=== PATIENT | male | born 1955 | race Caucasian/White ===

== ENCOUNTER 2018-03-09 07:52 | Day surgery (SDC) | payer BC, OTHER ==
--- OUTSIDE RECORDS SUMMARY | 2018-03-09 07:55 | XMS REPORT | Summary of Care ---
:1955 Author Organization [facility] Outpatient Imaging [place] Address [address], [place] [address]- Encounter HQ Encntr_alias(FIN) [id number] Date(s): 08/24/15 - 08/24/15 [facility] Outpatient Imaging [address] [phone] Discharge Disposition: Home Attending Physician: George Laws MD Vital Signs No data available for this section Problem List Condition Effective Dates Status Health Status Informant Cellulitis(Confirmed) Active Morbid obesity(Confirmed) Active Pain(Confirmed) Active Allergies, Adverse Reactions, Alerts Substance Reaction Severity Status NKDA Active Medications No data available for this section Results No data available for this section Immunizations No data available for this section Procedures No data available for this section Social History Social History Type Response Smoking Status Never smoker; Exposure to Tobacco Smoke None; Cigarette Smoking Last 365 Days No; Reg Smoking Cessation Counseling No Assessment and Plan No data available for this section
--- OUTSIDE RECORDS SUMMARY | 2018-03-09 07:55 | XMS REPORT | Summary of Care ---
:1955 Author Organization [facility] Outpatient Imaging [place] Address [address] [address]- Encounter HQ Encntr_alias(FIN) [id number] Date(s): 03/26/17 - 03/26/17 [facility] Outpatient Imaging [address], [address] [place] [phone] Discharge Disposition: Home or Self Care Attending Physician: yCril Archer Vital Signs No data available for this section Problem List Condition Effective Dates Status Health Status Informant Morbid obesity(Confirmed) Active Pain(Confirmed) Active Testicular mass(Confirmed) Active Allergies, Adverse Reactions, Alerts Substance Reaction [...]
--- OUTSIDE RECORDS SUMMARY | 2018-03-09 07:55 | XMS REPORT | Continuity of Care Document ---
:1955 Author Organization Interface Problems Problem Status Onset Classification Date Comments Source Date Reported N50.9 - Active 08/22/19 [facility] [address] [place] [facility]ITAL [facility] Morbid obesity Active Problem 03/29/2017 [facility] [place] Pain Active Problem 03/29/2017 [facility] [place] Testicular Active Problem 03/29/2017 [facility] mass [facility] Cellulitis Active Problem 09/07/2015 [facility] [place] Medications Medication Details Route Status Patient Ordering Order Source Instructions Provider Date Allergies, Adverse Reactions, Alerts Substance Category Reaction Severity Reaction Status Date Comments Source type Reported Immunizations Immunization Date Given Site Status Last Updated Comments Source Results Order Results Value Reference Date Interpretation Comments Source Name Range Spine Spine MRI LUMBAR SPINE WITHOUT CONTRAST 03/26 - [facility] lumbar wo lumbar - [facility] contrast contrast MRI MRI HISTORY: M54.5 Low back pain - degenerative disc disease lumbar spine, 61-year-old male reports stabbing low back pain for approximately 3 weeks Read by: Juan Manuel Angel MD Dictated Date/time: 03/26/17 14:21 Electronically Signed by: Juan Manuel Angel MD 03/26/17 14:33 FINAL REPORT COMPARISON: CT abdomen/pelvis dated 09/04/2015 TECHNIQUE: Multiplanar T1, T2, fluid-sensitive weighted MRI of the lumbar spine without contrast is performed on the 1.5 Carlie magnet. FINDINGS: No fracture is seen. Vertebral body heights are maintained. No bone marrow edema or aggressive osseous lesion. No discitis/osteomyelitis. Mild to moderate multilevel disc degeneration and facet arthrosis. No spondylolisthesis. No paraspinal mass, fluid collection, or inflammatory signal. Visualized portion of the kidneys and aorta is unremarkable. DISC SPACES: T12/L1: Mild degenerative disc desiccation. Normal facet joints. No canal stenosis or neural foraminal narrowing. L1/L2: Mild degenerative disc desiccation. Mild bilateral degenerative facet arthrosis. No canal stenosis or neural foraminal narrowing. L2/L3: Mild degenerative disc desiccation. Mild bilateral degenerative facet arthrosis. No canal stenosis or neural foraminal narrowing. L3/L4: Mild degenerative diffuse disc bulge. Moderate degenerative facet and ligamentum flavum hypertrophy. No canal stenosis. No significant neural foraminal narrowing. L4/L5: Mild degenerative diffuse disc bulge. Moderate degenerative facet and ligamentum flavum hypertrophy. No canal stenosis. Mild bilateral neural foraminal narrowing. L5/S1: Mild degenerative diffuse disc bulge. Moderate degenerative facet and ligamentum flavum hypertrophy. No canal stenosis. No significant neural foraminal narrowing. IMPRESSION: 1. Multilevel mild disc degeneration and mild to moderate facet arthrosis. 2. No significant canal stenosis or neural foraminal narrowing. SL: [id number] Abdomen/P Abdomen/P Procedure: CT Abdomen/Pelvis with IV and Oral Contrast. 09/03 - [facility] galicia mary - IV IV contrast contrast CT CT Clinical Indication: Left testicular mass. Read by: Ricardo Courtney MD Dictated Date/time: 09/04/15 15:20 Electronically Signed by: Ricardo Courtney MD 09/04/15 15:28 FINAL REPORT Comparison: Scrotal ultrasound 08/24/2015. TECHNIQUE: Helical imaging was performed diaphragm through the symphysis with multiplanar reformations obtained. IV CONTRAST: 100 mL Omnipaque 300. GI CONTRAST: Diluted Omnipaque 300. FINDINGS: LOWER CHEST: The lung bases are clear. SOLID ORGANS: The liver demonstrates diminished attenuation consistent with fatty infiltration. The gallbladder, pancreas, adrenal glands and kidneys appear normal. There are calcified splenic granulomata. BOWEL: The bowel is within normal limits. The appendix is unremarkable. PERITONEUM: No free intraperitoneal fluid or air. There is a small fat- containing umbilical hernia. RETROPERITONEUM: Calcific atherosclerosis involves the abdominal aorta and iliac vessels. There are multiple enlarged retroperitoneal lymph nodes, the largest of which is present in the left para-aortic location and measures 14 mm in short axis dimension. There is a precaval lymph node near the aortic bifurcation measuring 8 mm in short axis dimension. PELVIS: The seminal vesicles and prostate gland are within normal limits. No definitive enlarged pelvic lymphadenopathy is observed. There are several subcentimeter benign-appearing bilateral inguinal lymph nodes. The urinary bladder is normal. MUSCULOSKELETAL: Degenerative change involves the lumbosacral spine. No osseous metastatic disease is identified. IMPRESSION: 1. Fatty infiltration of the liver. 2. Previous granulomatous disease. 3. Small fat-containing umbilical hernia. 4. Enlarged retroperitoneal para-aortic lymph nodes as described. SL:[id number] Scrotal/T Scrotal/T EXAM: Ultrasound scrotum and testes 08/23 - [facility] esticle est - [place] US US EXAM: Mass left testicle COMPARISON: None Read by: Pedro Garcia MD Dictated Date/time: 08/24/15 11:57 TECHNIQUE: Sonographic evaluation of the scrotum and testes was performed using high resolution B-mode imaging as well as pulse and color Doppler imaging. Electronically Signed by: Pedro Garcia MD 08/24/15 12:10 FINAL REPORT FINDINGS: TESTES: The right testicle measures 4.3 x 2.5 x 2.9 cm. The left testicle measures 5.5 x 3.6 x 4 cm. A large heterogeneous hypoechoic approximately 4.6 cm mass with color flow is present in the left testis. Mild heterogeneity of the right testis without mass seen. EPIDIDYMIDES: Appear unremarkable. SCROTUM: Moderate hydrocele on the left and small hydrocele on the right. Small varicoceles on the left. IMPRESSION: 1. Large, approximately 4.6 cm mass left testis compatible with primary malignancy. 2. Moderate hydrocele on the left and small hydrocele on the right. 3. Small left-sided varicoceles. Message was left with Dr. Laws's answering service. SL: [id number] Vital Signs Vital Sign Value Date Comments Source Encounters Location Location Encounter Encounter Reason Attending ADM DC Status Source Details Type Number For Provider Date Date Visit [facility] Outpt Diag [id number] Darcie Laws 08/23 08/24 [facility] [place] [facility] [id number] DARCIE LAWS 08/29 Active [facility] Outpt Diag [id number] Darcie Laws 09/03 09/04 [facility] [id number] DARCIE LAWS 09/06 Active [facility] [place] Outpatient [id number] DARCIE LAWS 09/20 [facility] Outpt Diag [id number] Cyril 03/26 03/27 [facility] Procedures Procedure Code Date Perfomer Comments Source
--- OUTSIDE RECORDS SUMMARY | 2018-03-09 07:55 | XMS REPORT | Clinical Summary ---
:1955 Author Organization [facility] Address [address] [place] [address] Care Team Providers Name Role Phone Pcp, No Primary Care Provider Unavailable Allergies No Known Allergies Medications Medication Sig Dispensed Refills Start Date End Date Status insulin degludec Inject 40 Units 0 Active (TRESIBA FLEXTOUCH subcutaneously 50 U-100) 100 unit/mL units at night. . (3 mL) InPn liraglutide 0.6 Inject 0 Active mg/0.1 mL (18 mg/3 subcutaneously mL) PnIj daily. insulin aspart U-100 Inject 0 Active (NOVOLOG) 100 subcutaneously 3 unit/mL InPn (three) times daily with meals Sliding scale. . canagliflozin Take 300 mg by mouth 0 Active (INVOKANA) 300 mg daily. tablet metFORMIN (FORTAMET) Take 1,000 mg by 0 Active 1000 MG (OSM) 24 hr mouth 2 (two) times tablet daily with breakfast and dinner. rivaroxaban Take 20 mg by mouth 0 Active (XARELTO) 20 mg Tab daily with dinner tablet Last dose on 01/04/18 in prep for procedure. . digoxin (LANOXIN) Take 125 mcg by 0 Active 0.125 MG tablet mouth daily. atorvastatin Take 20 mg by mouth 0 Active (LIPITOR) 20 MG daily. tablet metoprolol Take 150 mg by mouth 0 Active (TOPROL-XL) 100 MG daily. 24 hr tablet losartan (COZAAR) 25 Take 25 mg by mouth 0 Active MG tablet daily. pantoprazole Take 40 mg by mouth 0 Active (PROTONIX) 40 MG daily. tablet febuxostat 40 mg Take 40 mg by mouth 0 Active tablet daily. cholecalciferol, Take 2,000 Units by 0 Active vitamin D3, 2,000 mouth daily. unit Tab aspirin 81 MG EC Take 81 mg by mouth 0 Active tablet daily Last dose on 01/04/18 . omega-3 acid ethyl Take 1 g by mouth 2 0 Active esters (LOVAZA) 1 (two) times daily. gram capsule vit A/vit C/vit Take 1 capsule by 0 Active E/zinc/copper mouth 2 (two) times (PRESERVISION AREDS daily. ORAL) Active Problems Problem Noted Date CAD (coronary artery disease) 01/08/2018 Encounters Date Type Specialty Care Team Description 01/08/2018 Surgery Giuliano Morales MD L CATH & PCI 01/08/2018 Hospital Encounter Giuliano Morales MD 01/07/2018 Orders Only Cardiology Giuliano Morales MD after 03/08/2017 Social History Tobacco Use Types Packs/Day Years Used Date Never Smoker Smokeless Tobacco: Never Used Alcohol Use Drinks/Week oz/Week Comments No Sex Assigned at Date Recorded Not on file Job Start Date Occupation Industry Not on file Not on file Not on file Travel History Travel Start Travel End No recent travel history available. Last Filed Vital Signs Vital Sign Reading Time Taken Blood Pressure 156/68 01/08/2018 11:45 AM CDT Pulse 120 01/08/2018 11:45 AM CDT Temperature 36.7 C (98.1 F) 01/08/2018 5:45 AM CDT Respiratory Rate 18 01/08/2018 11:45 AM CDT Oxygen Saturation 96% 01/08/2018 9:05 AM CDT Inhaled Oxygen Concentration - - Weight 142.7 kg (314 lb 11.2 oz) 01/08/2018 5:45 AM CDT Height 186.7 cm (6' 1.5") 01/08/2018 5:45 AM CDT Body Mass Index 40.96 01/08/2018 5:45 AM CDT Plan of Treatment Not on file Implants Implanted Type [employer] Device Shelf Model / Identifier Expiration Serial / Date Lot Device Clsr Angio-Seal Vip 6fr [id number] - [id number] Cardiovascular Right: [employer] SARAH [id number] 09/27/2018 [id number] / Implanted: Qty: 1 on 01/08/2018 by Giuliano Morales MD [facility] MED: CARDIAC / SURG [id number] Procedures Procedure Name Priority Date/Time Associated Diagnosis Comments REPORT OF PROCEDURE - 01/09/2018 12:50 PM ENDOSCOPY SCAN CDT VASCULAR DIAGRAM -SCAN 01/09/2018 12:50 PM CDT CARDIAC CATH REPORT - 01/09/2018 12:50 PM SCAN CDT L CATH & PCI 01/08/2018 7:30 AM Abnormal cardiac CDT function test Case Notes (1) CASE POP6 CBC W/PLT COUNT & AUTO STAT 01/08/2018 6:12 AM CDT Results for this DIFFERENTIAL procedure are in the results section. CBC W/PLT COUNT & AUTO STAT 01/08/2018 6:12 AM CDT Results for this DIFFERENTIAL procedure are in the results section. BASIC METABOLIC PANEL (7) STAT 01/08/2018 6:12 AM CDT after 03/08/2017 Results EKG-SCANNED (01/09/2018 12:50 PM CDT) Narrative Performed At VASCULAR DIAGRAM -SCAN (01/09/2018 12:50 PM CDT) Narrative Performed At CARDIAC CATH REPORT - SCAN (01/09/2018 12:50 PM CDT) Narrative Performed At CBC with platelet count + automated diff (01/08/2018 6:12 AM CDT) WBC 6.9 3.5 - 10.5 K/L [facility] RBC 3.85 (L) 4.63 - 6.08 M/L [facility] Hemoglobin 8.7 (L) 13.7 - 17.5 GM/DL [facility] Hematocrit 30.8 (L) 40.1 - 51.0 % [facility] MCV 80.0 79.0 - 92.2 fL [facility] MCH 22.6 (L) 25.7 - 32.2 pg [facility] MCHC 28.2 (L) 32.3 - 36.5 GM/DL [facility] RDW 16.6 (H) 11.6 - 14.4 % [facility] Platelets 167 150 - 450 K/CU MM [facility] MPV 9.2 (L) 9.4 - 12.4 fL [facility] nRBC 0 0 - 0 /100 WBC [facility] % Neutros 73 % [facility] % Lymphs 15 % [facility] % Monos 11 % [facility] % Eos 0 % [facility] % Baso 0 % [facility] # Neutros 4.99 1.78 - 5.38 K/L [facility] # Lymphs 1.06 (L) 1.32 - 3.57 K/L [facility] # Monos 0.73 0.30 - 0.82 K/L [facility] # Eos 0.03 (L) 0.04 - 0.54 K/L [facility] # Baso 0.03 0.01 - 0.08 K/L [facility] Immature Granulocytes-Relative 1 0 - 1 % [facility] Specimen Blood - Arm, Left Performing Organization Address City/State/Zipcode Phone Number [facility] [address] [place] [address] CENTER Basic metabolic panel (01/08/2018 6:12 AM CDT) Sodium 136 136 - 145 meq/L [facility] Potassium 4.0 3.5 - 5.1 meq/L [facility] Chloride 105 98 - 107 meq/L [facility] CO2 21 (L) 22 - 29 meq/L [facility] BUN 22 (H) 7 - 21 mg/dL [facility] Creatinine 1.33 (H) 0.57 - 1.25 mg/dL [facility] Glucose 141 (H) 70 - 105 mg/dL [facility] Calcium 8.7 8.4 - 10.2 mg/dL [facility] EGFR 54Comment: ESTIMATED GFR IS mL/min/1.73 sq m [facility] NOT ACCURATE CREATININE MEDICAL CENTER CLEARANCE IN PREDICTING GLOMERULAR FILTRATION RATE. ESTIMATED GFR IS NOT APPLICABLE FOR DIALYSIS PATIENTS. Specimen Blood - Arm, Left Performing Organization Address City/State/Zipcode Phone Number [facility] [address] [place] [address] [phone] CENTER after 03/08/2017 Insurance Payer Benefit Plan / Subscriber ID Type Phone Address Group BLUE CROSS/BLUE BCBS PPO POS EPO xxxxxxxxxxxx PPO [phone] [address] [place] [address] (Home) [place] [address] Advance Directives Patient has advance care planning documents, and code status on file. For more information, please contact:[facility] [place] [address] [phone] Code Status Date Activated Date Inactivated Comments Full Code 01/08/2018 5:55 AM 01/08/2018 2:35 PM This code status was determined by: Patient
--- OUTSIDE RECORDS SUMMARY | 2018-03-09 07:55 | XMS REPORT | Summary of Care ---
:1955 Author Organization [facility] Outpatient Imaging [place] Address [id number] [place] [address]- [facility] HQ Encntr_alias(FIN) [id number] Date(s): 09/04/15 - 09/04/15 [facility] Outpatient Imaging [address] Discharge Disposition: Home Attending Physician: George Laws MD Vital Signs No data available for this section Problem List Condition Effective Dates Status Health Status Informant Cellulitis(Confirmed) Active Morbid obesity(Confirmed) Active Pain(Confirmed) Active Testicular mass(Confirmed) [...]
--- OUTSIDE RECORDS SUMMARY | 2018-03-09 07:56 | XMS REPORT ---
:1955 [facility] Address [address] [place] [address] Dr. Gomez [address] [place] [address] Care Team Providers Name Role Phone VAL ZAMUDIO Unavailable Unavailable Problems This patient has no known problems. Allergies, Adverse Reactions, Alerts This patient has no known allergies or adverse reactions. Medications This patient has no known medications. Results Test Description Test Time Test Comments Text Results Atomic Results Result Comments BASIC METABOLIC PANEL 2018-01-08 07:29:00 Test Item Value Reference Range Comments SODIUM (BEAKER) (test 136 meq/L 136-145 zivo=963) POTASSIUM (BEAKER) (test 4.0 meq/L 3.5-5.1 itee=969) CHLORIDE (BEAKER) (test 105 meq/L 98-107 vurb=926) CO2 (BEAKER) (test msqt=341) 21 meq/L 22-29 BLOOD UREA NITROGEN (BEAKER) 22 mg/dL 7-21 (test hemq=724) CREATININE (BEAKER) (test 1.33 mg/dL 0.57-1.25 xmca=667) GLUCOSE RANDOM (BEAKER) 141 mg/dL 70-105 (test oufy=906) CALCIUM (BEAKER) (test 8.7 mg/dL 8.4-10.2 scwj=492) EGFR (BEAKER) (test 54 mL/min/1.73 sq m ESTIMATED GFR IS NOT hgng=6259) ACCURATE CREATININE CLEARANCE IN PREDICTING GLOMERULAR FILTRATION RATE. ESTIMATED GFR IS NOT APPLICABLE FOR DIALYSIS PATIENTS. CBC W/PLT COUNT & AUTO [id number] 06:20:00 Test Item Value Reference Range Comments WHITE BLOOD CELL COUNT (BEAKER) (test wcdg=017) 6.9 K/ L 3.5-10.5 RED BLOOD CELL COUNT (BEAKER) (test wbea=544) 3.85 M/ L 4.63-6.08 HEMOGLOBIN (BEAKER) (test ynby=532) 8.7 GM/DL 13.7-17.5 HEMATOCRIT (BEAKER) (test spmp=426) 30.8 % 40.1-51.0 MEAN CORPUSCULAR VOLUME (BEAKER) (test byra=242) 80.0 fL 79.0-92.2 MEAN CORPUSCULAR HEMOGLOBIN (BEAKER) (test 22.6 pg 25.7-32.2 vwzi=315) MEAN CORPUSCULAR HEMOGLOBIN CONC (BEAKER) (test 28.2 GM/DL 32.3-36.5 brey=385) RED CELL DISTRIBUTION WIDTH (BEAKER) (test 16.6 % 11.6-14.4 dzlj=907) PLATELET COUNT (BEAKER) (test xblx=518) 167 K/CU MM 150-450 MEAN PLATELET VOLUME (BEAKER) (test bgxm=026) 9.2 fL 9.4-12.4 NUCLEATED RED BLOOD CELLS (BEAKER) (test 0 /100 WBC 0-0 xnst=990) NEUTROPHILS RELATIVE PERCENT (BEAKER) (test 73 % lmzo=840) LYMPHOCYTES RELATIVE PERCENT (BEAKER) (test 15 % khqh=493) MONOCYTES RELATIVE PERCENT (BEAKER) (test 11 % oodl=225) EOSINOPHILS RELATIVE PERCENT (BEAKER) (test 0 % pcvs=366) BASOPHILS RELATIVE PERCENT (BEAKER) (test 0 % yiad=721) NEUTROPHILS ABSOLUTE COUNT (BEAKER) (test 4.99 K/ L 1.78-5.38 guou=139) LYMPHOCYTES ABSOLUTE COUNT (BEAKER) (test 1.06 K/ L 1.32-3.57 sbhp=076) MONOCYTES ABSOLUTE COUNT (BEAKER) (test 0.73 K/ L 0.30-0.82 avrs=459) EOSINOPHILS ABSOLUTE COUNT (BEAKER) (test 0.03 K/ L 0.04-0.54 manu=104) BASOPHILS ABSOLUTE COUNT (BEAKER) (test 0.03 K/ L 0.01-0.08 nrdp=259) IMMATURE GRANULOCYTES-RELATIVE PERCENT (BEAKER) 1 % 0-1 (test kbkl=0742)
[2018-03-09] MEDS ORDERED: NS 0.9% VIAL 10 ML ONE (08:24)
[2018-03-09] MEDS ORDERED: BSS OPTHALMIC SOL 15 ML BOT OPTH ONE (08:24)
[2018-03-09] MEDS ORDERED: PHENYLEPHRINE 10% OPTH 5ML ONE (08:52)
[2018-03-09] MEDS ORDERED: NA CHLORIDE 0.9% 500 ML ONE (08:52)
[2018-03-09] MEDS ORDERED: TETRACAINE HCL 0.5% 2ML OPTH ONE (08:52)
[2018-03-09] MEDS ORDERED: LIDOCAINE 2% MPF 5 ML VIAL ONE (08:52)
[2018-03-09] MEDS ORDERED: CYCLOPENTOLATE 1% OPTH 2 ML ONE (08:52)
[2018-03-09] MEDS ORDERED: BUPIVACAINE 0.25% PF 30 ML VIAL ONE (08:58)
[2018-03-09 09:00] LABS: Protime INR 1.01
[2018-03-09] MEDS ORDERED: PHENYLEPHRINE 10% OPTH 5ML OPTH ONE ×2 (09:12→09:17)
[2018-03-09] MEDS ORDERED: CYCLOPENTOLATE 1% OPTH 2 ML OPTH ONE ×2 (09:12→09:17)
[2018-03-09] MEDS ORDERED: LIDOCAINE HCL/PF 3.5% OPTH GEL ONE (09:26)
[2018-03-09] MEDS ORDERED: MIDAZOLAM HCL 2 MG/2 ML INJ ONE (09:36)
[2018-03-09] MEDS ORDERED: FENTANYL CITR 100 MCG/2 ML ONE (09:36)
[2018-03-09] MEDS: DUOVISC 1 KIT OPTH ONE ×2 (09:37→10:08)
[2018-03-09] MEDS: BALANCED SALT IRRIG PLAIN 500 ML BTL IRR ONE ×2 (09:37→10:08)
[2018-03-09] MEDS: EPINEPHRINE/PF 1 MG/ML AMP ONE ×2 (09:37→10:08)
[2018-03-09] MEDS: MOXIFLOXACIN HCL 10 DROPS/ML **OR USE OPTH ONE ×2 (09:38→10:08)
[2018-03-09] MEDS: LIDOCAINE 1% MPF 2 ML AMPULE ONE ×2 (09:38→10:08)
--- NOTE | 2018-03-09 10:48 | P.BOP ---
Preoperative diagnosis: Nuclear sclerotic and posterior subcapsular cataract OS Postoperative diagnosis: Same Primary procedure: Phacoemulsification with IOL OS Estimated blood loss: None Anesthesia: Local (Topical with anesthesia for cataract surgery) Complications: None Implants: [id number] +21.5 Transferred to: Other (Day surgery) Condition: Good
--- NOTE | 2018-03-09 22:05 | OP ---
Date of Procedure: 03/09/2018 Surgeon: Amaya Ga MD Anesthesiologist: Evon Connors.NHarrison and Josh Choi C.R.N.A. Preoperative Diagnosis: Nuclear sclerotic and posterior subcapsular cataract, OS (left eye). Operation Performed: Phacoemulsification with intraocular lens implant, left eye. Anesthesia: Per cataract surgery. Complications: None. Description Of Procedure: In the operating room, the patient was prepped and draped in the usual sterile fashion for ophthalmic surgery. A lid speculum was placed in the OS. Two paracentesis sites were made superiorly and inferiorly in the limbal cornea. Viscoat was placed in the anterior chamber and a crescent blade was used to make a corneal groove and tunnel, and a keratome was used to enter the anterior chamber. Provisc was placed in the anterior chamber and a 360-degree capsulotomy was performed with a cystitome. The lens was hydrodissected with BSS and rotated freely. The lens was removed with a stop and chop technique. A 4.32 phaco CDE was used to remove the lens. Residual cortex was removed with the irrigation and aspiration. Provisc was placed in the capsular bag. A SN60WF +21.5 diopter lens was placed in the capsular bag without complications. Irrigation and aspiration were used to remove residual viscoelastic. The paracentesis sites were hydrated with BSS. The wound and paracentesis sites were inspected and found to be watertight. Vigamox 0.07 cc was placed intracamerally at the end of the procedure. The eye was irrigated with balanced salt solution. The eye was patched with a soft cotton patch and Osullivan metal shield. The patient was returned to day surgery in good condition. Comments: Trace residual PSC remained at the end of the surgery. Akten was placed in the eye in day surgery and irrigated out of the eye with BSS in the OR. Preservative-free 1% lidocaine was placed in the anterior chamber prior to Viscoat. Discharge Instructions: Mr. Doyle is discharged to home in good condition and is to follow up with Dr. Ga in the morning. MELLISA/FARRAH Voice ID: [id number] Report ID: [id number] [facility]
== END 2018-03-09 11:15 | disposition home or self-care (01) ==
LOC: OR 07:52
PROVIDERS: ATTEND Ophthalmology Retina Specialist
PROC: 08RK3JZ Replacement of Left Lens with Synthetic Substitute, Percutaneous Approach (ICD-10-PCS; principal; 2018-03-09 09:55)
DX: H25.042 Posterior subcapsular polar age-related cataract, left eye (principal); H25.12 Age-related nuclear cataract, left eye; E11.36 Type 2 diabetes mellitus with diabetic cataract; E11.3592 Type 2 diabetes mellitus with proliferative diabetic retinopathy without macular edema, left eye; E78.00 Pure hypercholesterolemia, unspecified; I10 Essential (primary) hypertension; M10.9 Gout, unspecified; Z79.4 Long term (current) use of insulin; Z79.01 Long term (current) use of anticoagulants; Z79.82 Long term (current) use of aspirin; Z79.899 Other long term (current) drug therapy; Z95.5 Presence of coronary angioplasty implant and graft
CPT/HCPCS: 36415; 85610; 85730; J0171; J2001; J2250; J3010; V2630